=== PATIENT | male | born 1935 | race Caucasian/White ===

== ENCOUNTER 2018-02-05 17:33 | Inpatient (IN) | payer OTHER, MEDICARE ==
[2018-02-05] VITALS (7 sets, daily range): BP systolic 103–128; BP diastolic 43–58
[~2018-02-05] VITALS: Ht 185.4 cm; Wt 61.5 kg
[~2018-02-05 17:33] MED LIST: ASPIRIN CHEWABL81 M1 PO; HYDROCHLOROTH12.5 M3 PO; PRAVACHOL40 MG PO; PROTONIX40 MG PO; SPIRIVA1 INHALATI IH; THERAGRAN1 TABLET PO; Vasotec PO
[2018-02-05 18:04] LABS: BASOPHIL (%) 0.4 % (0-1); BASOPHIL COUNT 0.1 K/uL (0-0.1); EOSINOPHIL (%) 1.3 % (0-5); EOSINOPHIL COUNT 0.3 K/uL (0-0.3); IMMATURE GRANULOCYTE (%) 0.9 % (0.0-0.7); LYMPHOCYTE (%) 7.9 % (15-42); LYMPHOCYTE COUNT 1.5 K/uL (1.0-2.8); MCH 18.1 PG (29.0-34.0); MCHC 28.3 G/DL (30.0-36.0); MCV 64.1 FL (86-99); MONOCYTE (%) 4.6 % (3-12); MONOCYTE COUNT 0.9 K/uL (0-0.8); NEUTROPHIL (%) 84.9 % (45-76); NEUTROPHIL COUNT 16.3 K/uL (1.8-6.4); NRBC (%) 0.1 /100 WBC (0-0); PLATELET COUNT 722 K/uL (156-360); RBC DIS.WIDTH-CV 20.6 % (11.8-14.6); RBC DIS.WIDTH-SD 45.2 % (39-53); RED BLOOD COUNT 2.81 M/uL (4.00-5.50); WHITE BLOOD COUNT 19.2 K/uL (4.1-10.2)
[2018-02-05 18:07] LABS: ALBUMIN 3.7 g/dL (3.2-4.8); CHLORIDE 105 mEq/L (99-109); HEMOGLOBIN 5.1 G/DL (12.5-16.6); POTASSIUM 4.6 mEq/L (3.7-5.4); SODIUM 135 mEq/L (136-147)
[2018-02-05 18:08] LABS: MAGNESIUM 2.2 mg/dL (1.3-2.7)
[2018-02-05 18:09] LABS: GLUCOSE 122 mg/dL (70-99); TOTAL PROTEIN 5.2 g/dL (6.4-8.3)
[2018-02-05 18:11] LABS: TOTAL BILIRUBIN 0.3 mg/dL (0.0-1.0)
[2018-02-05 18:13] LABS: ALKALINE PHOSPHATASE 69 IU/L (3-129); CREATININE 0.8 mg/dL (0.6-1.3); GFR ESTIMATE (CALCULATED) > 59 mL/min/ (58.99-99999)
[2018-02-05 18:14] LABS: INTER. NORMALIZED RATIO 1.1; UREA NITROGEN (BUN) 52 mg/dL (9-23)
[2018-02-05 18:15] LABS: AST (GOT) 19 IU/L (2-34)
[2018-02-05 18:16] LABS: ALT (GPT) 17 IU/L (3-49)
[2018-02-05 18:17] LABS: PTT 25.1 SEC (25-37)
[2018-02-05 18:21] LABS: TROP-I INTERPRETATION NEGATIVE; TROPONIN-I 0.03 ng/mL (0.0-0.30)
[2018-02-05] MEDS ORDERED: ANORO ELLIPTA1 EACH IH (19:16)
[2018-02-05] MEDS ORDERED: VASOTEC10 MG PO (19:25)
[2018-02-05 23:35] LABS: HEMATOCRIT 19.1 % (38.0-50.0); HEMOGLOBIN 5.6 G/DL (12.5-16.6); MCV 67.5 FL (86-99)
[2018-02-06] VITALS (13 sets, daily range): BP systolic 101–120; BP diastolic 51–86
[2018-02-06 08:46] LABS: HEMATOCRIT 25.3 % (38.0-50.0); MCHC 31.6 G/DL (30.0-36.0); NRBC (%) 0.2 /100 WBC (0-0); RBC DIS.WIDTH-CV 23.5 % (11.8-14.6); RBC DIS.WIDTH-SD 61.7 % (39-53); WHITE BLOOD COUNT 16.7 K/uL (4.1-10.2)
[2018-02-06 09:00] LABS: PLAT.SUFFICIENCY INCREASED; PLATELET CLUMPS PRESENT - PLATELET COUNT APPEARS INCREASED
[2018-02-06 09:02] LABS: MCH 23.4 PG (29.0-34.0); PLATELET COUNT UNABLE TO REPORT K/uL (156-360); RED BLOOD COUNT 3.42 M/uL (4.00-5.50)
[2018-02-06 09:43] LABS: CHLORIDE 109 MEQ/L (99-109); CREATININE 0.7 MG/DL (0.6-1.3); GFR ESTIMATE (CALCULATED) > 59 mL/min/ (58.99-99999); GLUCOSE 100 mg/dL (70-99); POTASSIUM 4.9 MEQ/L (3.7-5.4); SODIUM 138 MEQ/L (136-147); UREA NITROGEN (BUN) 56 mg/dL (9-23)
[2018-02-06 12:40] LABS: APPEARANCE CLEAR ((CLEAR)); BILIRUBIN NEGATIVE; BLOOD NEGATIVE; COLOR YELLOW ((YELLOW)); GLUCOSE (STRIP) NEGATIVE; KETONES NEGATIVE; LEUKOCYTES NEGATIVE; NITRITE NEGATIVE; PROTEIN (STRIP) NEGATIVE; SPECIFIC GRAVITY 1.019 (1.000-1.030); UCUL ADDED? NO; UROBILINOGEN 0.2 MG/DL (0.2-1.0)
[2018-02-06 13:33] LABS: HEMATOCRIT 24.4 % (38.0-50.0); HEMOGLOBIN 7.8 G/DL (12.5-16.6); MCV 74.4 FL (86-99)
[2018-02-06 21:47] LABS: HEMATOCRIT 27.4 % (38.0-50.0); HEMOGLOBIN 8.9 G/DL (12.5-16.6); MCV 74.1 FL (86-99)
[2018-02-07 00:15] VITALS: BP 133/60
[2018-02-07 06:07] LABS: HEMATOCRIT 24.3 % (38.0-50.0); HEMOGLOBIN 7.6 G/DL (12.5-16.6); MCH 23.3 PG (29.0-34.0); MCHC 31.3 G/DL (30.0-36.0); MCV 74.5 FL (86-99); NRBC (%) 0.1 /100 WBC (0-0); PLATELET COUNT 461 K/uL (156-360); RBC DIS.WIDTH-CV 23.1 % (11.8-14.6); RBC DIS.WIDTH-SD 61.7 % (39-53); RED BLOOD COUNT 3.26 M/uL (4.00-5.50); WHITE BLOOD COUNT 16.5 K/uL (4.1-10.2)
[2018-02-07 07:15] VITALS: BP 138/63
[2018-02-07 12:30] VITALS: BP 123/56
[2018-02-07 14:23] LABS: HEMATOCRIT 23.9 % (38.0-50.0); HEMOGLOBIN 7.6 G/DL (12.5-16.6); MCV 74.9 FL (86-99)
[2018-02-07 17:38] LABS: HEMATOCRIT 27.6 % (38.0-50.0); HEMOGLOBIN 8.5 G/DL (12.5-16.6)
[2018-02-07 19:48] VITALS: BP 158/67
[2018-02-07 21:57] LABS: HEMATOCRIT 24.8 % (38.0-50.0); HEMOGLOBIN 7.7 G/DL (12.5-16.6); MCV 74.3 FL (86-99)
[2018-02-07 23:52] VITALS: BP 134/60
[2018-02-08] VITALS (12 sets, daily range): BP systolic 126–172; BP diastolic 65–91
[2018-02-08 05:52] LABS: HEMATOCRIT 24.8 % (38.0-50.0); HEMOGLOBIN 7.6 G/DL (12.5-16.6); MCH 22.8 PG (29.0-34.0); MCHC 30.6 G/DL (30.0-36.0); MCV 74.5 FL (86-99); PLATELET COUNT 454 K/uL (156-360); RBC DIS.WIDTH-CV 24.1 % (11.8-14.6); RBC DIS.WIDTH-SD 63.8 % (39-53); RED BLOOD COUNT 3.33 M/uL (4.00-5.50); WHITE BLOOD COUNT 15.1 K/uL (4.1-10.2)
[2018-02-08 09:20] LABS: CHLORIDE 105 MEQ/L (99-109); CREATININE 0.7 MG/DL (0.6-1.3); GFR ESTIMATE (CALCULATED) > 59 mL/min/ (58.99-99999); GLUCOSE 87 mg/dL (70-99); SODIUM 135 MEQ/L (136-147)
[2018-02-08 09:23] LABS: POTASSIUM 3.9 MEQ/L (3.7-5.4); UREA NITROGEN (BUN) 16 mg/dL (9-23)
[2018-02-08 10:55] LABS: FERRITIN 11 NG/ML (22-322)
[2018-02-08 11:26] LABS: TRANSFERRIN (TIBC) 236.7 mg/dL (215-380)
[2018-02-08 11:27] LABS: IRON < 10 MCG/DL (35-150); TRANSFERRIN SATUR. 4 % (20-55)
[2018-02-08 16:04] LABS: HEMATOCRIT 25.7 % (38.0-50.0); MCV 74.7 FL (86-99)
[2018-02-09 00:54] LABS: HEMATOCRIT 30.7 % (38.0-50.0); MCV 74.7 FL (86-99)
[2018-02-09 04:15] VITALS: BP 148/68
[2018-02-09 06:37] LABS: CHLORIDE 103 MEQ/L (99-109); CREATININE 0.7 MG/DL (0.6-1.3); GFR ESTIMATE (CALCULATED) > 59 mL/min/ (58.99-99999); GLUCOSE 86 mg/dL (70-99); POTASSIUM 3.5 MEQ/L (3.7-5.4); SODIUM 138 MEQ/L (136-147); UREA NITROGEN (BUN) 10 mg/dL (9-23)
[2018-02-09 06:45] LABS: HEMATOCRIT 30.8 % (38.0-50.0); HEMOGLOBIN 9.7 G/DL (12.5-16.6); MCH 23.8 PG (29.0-34.0); MCHC 31.5 G/DL (30.0-36.0); MCV 75.5 FL (86-99); NRBC (%) 0.2 /100 WBC (0-0); RBC DIS.WIDTH-CV 23.2 % (11.8-14.6); RBC DIS.WIDTH-SD 61.7 % (39-53); WHITE BLOOD COUNT 13.8 K/uL (4.1-10.2)
[2018-02-09 06:49] LABS: RED BLOOD COUNT 4.08 M/uL (4.00-5.50)
[2018-02-09 07:36] LABS: PLAT.SUFFICIENCY INCREASED; PLATELET COUNT 432 K/uL (156-360)
[2018-02-09 07:49] VITALS: BP 153/68
[2018-02-09] MEDS ORDERED: LEVAQUIN750 MG PO (08:22)
[2018-02-09] MEDS ORDERED: FERROUS SULFAT325 MG PO (08:22)
[2018-02-09] MEDS ORDERED: MIRALAX17 GM PO (08:23)
[2018-02-09 11:34] VITALS: BP 164/74
== END 2018-02-09 13:16 | disposition home or self-care (01) | DRG 378 ==
LOC: EME 17:33 → EDOF 21:14 → 5EAST 21:14 → ENRESERV 21:18 → 5EAST 22:30 → ENPENDDIS 02-09 → 5EAST 02-09 13:16
PROVIDERS: Emergency Medicine; Hospitalist; Internal Medicine
PROC: 30233N1 Transfusion of Nonautologous Red Blood Cells into Peripheral Vein, Percutaneous Approach (ICD-10-PCS; principal; 2018-02-05)
PROC: 0DJ08ZZ Inspection of Upper Intestinal Tract, Via Natural or Artificial Opening Endoscopic (ICD-10-PCS; 2018-02-06)
PROC: 0DBM8ZX Excision of Descending Colon, Via Natural or Artificial Opening Endoscopic, Diagnostic (ICD-10-PCS; 2018-02-07)
DX: K92.2 Gastrointestinal hemorrhage, unspecified (principal); D62 Acute posthemorrhagic anemia; I44.2 Atrioventricular block, complete; T41.295A Adverse effect of other general anesthetics, initial encounter; Y92.234 Operating room of hospital as the place of occurrence of the external cause; I44.0 Atrioventricular block, first degree; I10 Essential (primary) hypertension; K57.30 Diverticulosis of large intestine without perforation or abscess without bleeding; Z87.11 Personal history of peptic ulcer disease; K31.5 Obstruction of duodenum; K44.9 Diaphragmatic hernia without obstruction or gangrene; E78.5 Hyperlipidemia, unspecified; J44.9 Chronic obstructive pulmonary disease, unspecified; I71.4 Abdominal aortic aneurysm, without rupture; I44.4 Left anterior fascicular block; K64.8 Other hemorrhoids; K63.3 Ulcer of intestine; K21.0 Gastro-esophageal reflux disease with esophagitis; Z79.82 Long term (current) use of aspirin; D72.829 Elevated white blood cell count, unspecified; Z85.828 Personal history of other malignant neoplasm of skin; Z87.891 Personal history of nicotine dependence; R63.6 Underweight; Z68.1 Body mass index [BMI] 19.9 or less, adult; R62.7 Adult failure to thrive
CPT/HCPCS: 71045; 74176; 74250; 80048; 80053; 81003; 82607; 82728; 83540; 83605; 83735; 84466; 84484; 85014; 85018; 85025; 85027; 85610; 85730; 86850; 86900; 86901; 86920; 87040; 88305; 93005; 94640 76; 99202; 99281; 99285; C9113; J1756; J1940; J1956; J2405; J3010; J7030; J7040; J7643; P9016; S0028